=== PATIENT | female | born 1990 | race Caucasian/White ===

== ENCOUNTER 2017-02-19 17:05 | Emergency (ER) | payer OTHER ==
[2017-02-19 17:14] VITALS: BP 110/70; PULSE 73; TEMP 97.9; BMI 32.4
--- NOTE | 2017-02-19 17:17 | PDOC ---
History of Present Illness - General History Source: Patient Exam Limitations: No Limitations - History of Present Illness Initial Comments: 02/19/17 18:05 The patient is a 26 year old female, with a significant past medical history of asthma, who presents to the emergency department with diffuse abdominal pain for the past 2 hours. The patient reports that she does not usually eat fast food but she reports that she did this afternoon. Shortly after, she reports that she began experiencing diffuse abdominal pain. The patient additionally endorses nausea with multiple episodes of vomiting and diarrhea since then. She rates the pain as a 7/10 in severity. The patient denies fevers or dysuria. The patients sister is at the bedside. LMP: 02/08/2017. Allergies: Shellfish derived. Past Surgical History: None reported. Social History: Non smoker. Denies alcohol or drug use. PCP: Dr. Orlando Hayward <Colette Diaz - Last Filed: 02/19/17 18:05> <Deondre Echols - Last Filed: 02/19/17 19:16> - General Chief Complaint: Pain, Acute Stated Complaint: ABD PAIN/VOMITING Time Seen by Provider: 02/19/17 17:13 Past History <Colette Diaz - Last Filed: 02/19/17 18:05> - Past Medical History Asthma: Yes - Psycho/Social/Smoking Cessation Hx Suicidal Ideation: No Smoking History: Never smoked Have you smoked in the past 12 months: No Hx Alcohol Use: No Drug/Substance Use Hx: No <Deondre Echols - Last Filed: 02/19/17 19:16> - Past Medical History Allergies/Adverse Reactions: Allergies Allergy/AdvReac Type Severity Reaction Status Date / Time shellfish derived Allergy Verified 02/19/17 17:10 Home Medications: Ambulatory Orders Cetirizine HCl [Zyrtec -] 20 mg PO DAILY 02/19/17 Lactobacillus Acidophilus [Acidophilus Lactobacillus] 1 each PO DAILY PRN Review of Systems - Review of Systems Able to Perform ROS?: Yes Comments:: 02/19/17 17:29 CONSTITUTIONAL: No fever, no chills, no fatigue EYES: No visual changes ENT: No ear pain, no sore throat CARDIOVASCULAR: No chest pain, no palpitations RESPIRATORY: No cough, no SOB GI: +Nausea, vomiting, diarrhea, abdominal pain. No constipation. GENITOURINARY: No dysuria, no frequency, no hematuria MUSKULOSKELETAL: No back pain, no joint pain, no myalgias SKIN: No rash NEURO: No headache <Colette Diaz - Last Filed: 02/19/17 18:05> *Physical Exam - Vital Signs Last Vital Signs Temp Pulse Resp BP Pulse Ox 97.9 F 73 18 110/70 97 02/19/17 17:06 02/19/17 17:06 02/19/17 17:06 02/19/17 17:06 02/19/17 17:06 - Physical Exam Comments: 02/19/17 18:00 CONSTITUTIONAL: Obese. Well-nourished; writhing in pain. HEAD: Normocephalic; atraumatic. EYES: No scleral icterus. Conjunctiva are pink. PERRL; EOM intact. ENMT: Dry mucosa. External appears normal; normal oropharynx. NECK: Supple; non-tender; no cervical lymphadenopathy. CARD: Normal S1, S2; no murmurs, rubs, or gallops. RESP: Normal chest excursion with respiration; breath sounds clear and equal bilaterally; no wheezes, rhonchi, or rales. ABD: Epigastric, RUQ and periumbilical tenderness to palpation. Negative France' s sign. Negative McBurney's point. No guarding, no rebound. Soft, non-distended ; no palpable organomegaly, no palpable hernias. EXT: Normal ROM in all four extremities; non-tender to palpation; distal pulses intact. SKIN: Warm, dry, no rash. NEURO: No focal neurological deficiencies. Normal speech, normal gait. <Colette Diaz - Last Filed: 02/19/17 18:05> - Vital Signs Last Vital Signs Temp Pulse Resp BP Pulse Ox 97.9 F 73 18 110/70 97 02/19/17 17:06 02/19/17 17:06 02/19/17 17:06 02/19/17 17:06 02/19/17 17:06 <Deondre Echols - Last Filed: 02/19/17 19:16> ED Treatment Course - LABORATORY CBC & Chemistry Diagram: 02/19/17 18:00 02/19/17 17:30 <Deondre Echols - Last Filed: 02/19/17 19:16> Medical Decision Making - Medical Decision Making 02/19/17 18:18 Patient reexamined. Patient is resting comfortably, pain free; abdominal exam reveals no focal tenderness, there is no guarding or rebound. Will continue to hydrate. Awaiting CBC/CMP/lipase/UA. 02/19/17 19:14 Patient reassessed. Patient is pain and symptom-free. Abdominal exam is showing no focal tenderness. Patient tolerates by mouth. CBC reveals no evidence of anemia or leukocytosis. CMP reveals normal electrolytes, normal LFTs and normal renal function. Lipase is within normal limit as well. Urinalysis reveals no evidence of pyuria. At this time, I do not suspect acute cholecystitis or colitis or appendicitis. Patient will be discharged with GI follow-up. <Deondre Echols - Last Filed: 02/19/17 19:16> *DC/Admit/Observation/Transfer - Attestations Scribe Attestion: 02/19/17 17:21 Documentation prepared by Colette Diaz, acting as medical imaging technologist for Deondre Echols MD. <Colette Diaz - Last Filed: 02/19/17 18:05> <Deondre Echols - Last Filed: 02/19/17 19:16> Diagnosis at time of Disposition: Abdominal pain Qualifiers: Abdominal location: upper abdomen, unspecified Qualified Code(s): R10.10 - Upper abdominal pain, unspecified Nausea and vomiting Qualifiers: Vomiting type: unspecified Vomiting Intractability: non-intractable Qualified Code(s): R11.2 - Nausea with vomiting, unspecified - Discharge Dispostion Disposition: HOME Condition at time of disposition: Stable - Referrals Referrals: Owen Munoz MD [Primary Care Provider] - Kannan Castro MD [Staff Physician] - - Patient Instructions Printed Discharge Instructions: DI for Abdominal Pain-Adult
[2017-02-19] MEDS ORDERED: morphine CARPU-JECT 4 MG/1 ML DISP.SYRIN IVPUSH ONE (17:24)
[2017-02-19] MEDS ORDERED: ONDANSETRON 4 MG/2 ML VIAL IVPB ONE (17:24)
[2017-02-19] MEDS ORDERED: FAMOTIDINE 20 MG/50 ML IVPB 50 ML IVPB ONE ×2 (17:24→17:26)
[2017-02-19] MEDS ORDERED: morphine CARPU-JECT 4 MG/1 ML DISP.SYRIN ONE (17:25)
[2017-02-19] MEDS ORDERED: ONDANSETRON 4 MG/2 ML VIAL ONE (17:26)
[2017-02-19 18:24] LABS: BASOPHIL 0.2 % (0-2.0); EOSINOPHIL 1.6 % (0-4.5); MEAN PLT VOLUME 7.4 fl (7.5-11.1); NEUTROPHILS 69.6 % (42.8-82.8); PLATELET COUNT 295 K/MM3 (134-434); RDW 13.9 % (11.6-15.6); WHITE BLOOD COUNT 9.6 K/mm3 (4.0-10.0)
[2017-02-19 18:57] LABS: ALBUMIN 4.1 g/dl (3.4-5.0); ALK PHOS 69 U/L (45-117); ANION GAP 9 (8-16); BILIRUBIN,TOTAL 0.5 mg/dL (0.2-1.0); CALCIUM 8.7 mg/dL (8.5-10.1); CO2 24 mmol/L (21-32); CREATININE 0.9 mg/dL (0.55-1.02); GLUCOSE,RANDOM 88 mg/dL (74-106); SGOT/AST 20 U/L (15-37); SGPT/ALT 24 U/L (12-78)
[2017-02-19 19:07] LABS: URINE APPEARANCE CLEAR; URINE BILIRUBIN NEGATIVE (NEGATIVE); URINE COLOR YELLOW; URINE GLUCOSE (UA) NEGATIVE (NEGATIVE); URINE KETONE NEGATIVE (NEGATIVE); URINE LEUK ESTERASE NEGATIVE (NEGATIVE); URINE NITRITE NEGATIVE (NEGATIVE); URINE PROTEIN NEGATIVE (NEGATIVE); URINE UROBILINOGEN NEGATIVE E.U./dl (0.2-1.0)
[2017-02-19 19:09] LABS: URINE BLOOD 1+ (NEGATIVE)
[2017-02-19 19:12] LABS: URINE MUCUS RARE; URINE RBC 3 /hpf (0-3); URINE WBC 1 /hpf (3-5)
== END 2017-02-19 19:17 | disposition home or self-care (01) ==
LOC: JER 17:05
PROC: 3E033GC Introduction of Other Therapeutic Substance into Peripheral Vein, Percutaneous Approach (ICD-10-PCS; principal; 2017-02-19)
PROC: 3E033NZ Introduction of Analgesics, Hypnotics, Sedatives into Peripheral Vein, Percutaneous Approach (ICD-10-PCS; 2017-02-19)
PROC: 3E033GC Introduction of Other Therapeutic Substance into Peripheral Vein, Percutaneous Approach (ICD-10-PCS; 2017-02-19)
DX: R10.84 Generalized abdominal pain (principal); J45.909 Unspecified asthma, uncomplicated
CPT/HCPCS: 36415; 80053; 81003; 81015; 83690; 84703; 85025; 87086; 96365; 96375; 99283-25

== ENCOUNTER 2017-07-15 19:39 | Inpatient (IN) | payer OTHER ==
[2017-07-15 19:51] VITALS: BMI 33.6
[2017-07-15] MEDS ORDERED: ALBUTEROL SO4 0.083% IH SOL 2.5 MG/3 ML VIAL.NEB. NEB PRN (20:00)
[2017-07-15] MEDS ORDERED: methylPREDNISolone NA SUCC 125 MG/2 ML VIAL IVPB ONE (20:00)
[2017-07-15] MEDS ORDERED: methylPREDNISolone NA SUCC 125 MG/2 ML VIAL ONE (20:01)
[2017-07-15] MEDS ORDERED: ALBUTEROL SO4 2.5/IPRATROPIUM 0.5 INH SOL 3 ML VIAL.NEB. NEB ONE (20:01)
[2017-07-15 20:16] LABS: BASOPHIL 0.2 % (0-2.0); EOSINOPHIL 1.6 % (0-4.5); MCH 31.3 pg (25.7-33.7); MCHC 32.8 g/dl (32.0-36.0); MEAN CELL VOLUME 95.4 fl (80-96); MEAN PLT VOLUME 6.8 fl (7.5-11.1); NEUTROPHILS 81.9 % (42.8-82.8); PLATELET COUNT 316 K/MM3 (134-434); RDW 13.5 % (11.6-15.6); WHITE BLOOD COUNT 13.1 K/mm3 (4.0-10.0)
[2017-07-15] MEDS: ALBUTEROL SO4 2.5/IPRATROPIUM 0.5 INH SOL 3 ML VIAL.NEB. NEB SCH ×2 (20:16→20:33)
[2017-07-15] MEDS ORDERED: SODIUM CHLORIDE 500 ML IV STA (20:17)
--- NOTE | 2017-07-15 20:24 | PDOC ---
Attending Attestation - Resident Resident Name: Yuriy Nieves - ED Attending Attestation I have performed the following: I have examined & evaluated the patient, The case was reviewed & discussed with the resident, I agree w/resident's findings & plan, Exceptions are as noted - HPI HPI: 07/15/17 20:21 26-year-old female with history of mild to moderate persistent asthma, never intubated but takes albuterol daily, currently at about 19 weeks gestation presents with worsening asthma symptoms particularly over the last 2-3 days in the setting of URI symptoms of nasal congestion and cough. Chills but no fever, was using albuterol and nebulizer at home only transient relief, seen at urgent care initially then referred to the emergency department. No chest pain or lung pain, does not smoke. - Physicial Exam PE: 07/15/17 20:22 Tachypneic and tachycardic in stretcher, O2 sat 100% No stridor Symmetric air entry without accessory muscle use while on nebulizer, bibasilar inspiratory and expiratory wheezing, no focally decreased breath sounds. - Critical Care Time Total Critical Care Time: 50 Critical Care Statement: The care of this patient involved high complexity decision making to prevent further life threatening deterioration of the patient 's condition and/or to evaluate & treat vital organ system(s) failure or risk of failure. - Medical Decision Making 07/15/17 20:23 Patient seen and evaluated with the resident. I agree with the overall evaluation, assessment, and management with the following summary of visit: 26-year-old female second trimester gestation with worsening asthma symptoms also in the setting of URI. Improving on nebulizers in the ER, lower suspicion for pneumonia. Rule out influenza. Nebulizers, IV steroids IV fluid hydration Influenza swab No indication for imaging in this woman at this time Reassess Heart Score/ECG Review #1 ECG reviewed & interpreted by me at: 00:13 General ECG Interpretation: Sinus Rhythm (tachy at 108), Normal Intervals (qtc 455), No acute ischemic changes
--- NOTE | 2017-07-15 20:27 | PDOC ---
History of Present Illness - General Chief Complaint: Asthma Stated Complaint: ASTHMA Time Seen by Provider: 07/15/17 19:53 History Source: Patient Exam Limitations: No Limitations - History of Present Illness Initial Comments: 07/15/17 20:21 Patient is a 26F with history of asthma (never hospitalized or intubated ) here today complaining of shortness of breath. She went to urgent care where she had several treatments of albuterol that worked briefly, but symptoms resumed. She had cold symptoms starting two days ago, including cough and running nose. She denies fevers, nausea, vomiting. Past History - Past Medical History Allergies/Adverse Reactions: Allergies Allergy/AdvReac Type Severity Reaction Status Date / Time shellfish derived Allergy Verified 07/15/17 19:51 Home Medications: Ambulatory Orders Cetirizine HCl [Zyrtec -] 20 mg PO DAILY 02/19/17 Asthma: Yes - Psycho/Social/Smoking Cessation Hx Anxiety: No Suicidal Ideation: No Smoking History: Never smoked Have you smoked in the past 12 months: No Information on smoking cessation initiated: No Hx Alcohol Use: No Drug/Substance Use Hx: No Substance Use Type: None Review of Systems - Review of Systems Comments:: 07/15/17 20:25 GENERAL/CONSTITUTIONAL: No fever or chills. No weakness. HEAD, EYES, EARS, NOSE AND THROAT: No change in vision. No ear pain or discharge. No sore throat. CARDIOVASCULAR: No chest pain. Positive for shortness of breath RESPIRATORY: Positive for cough and wheezing GASTROINTESTINAL: No nausea, vomiting, diarrhea or constipation. GENITOURINARY: No dysuria, frequency, or change in urination. SKIN: No rash NEUROLOGIC: No headache, loss of consciousness, or change in strength/sensation. HEMATOLOGIC/LYMPHATIC: No anemia, easy bleeding, or history of blood clots. ALLERGIC/IMMUNOLOGIC: No hives or skin allergy. *Physical Exam - Vital Signs Last Vital Signs Temp Pulse Resp BP Pulse Ox 98.5 F 111 H 25 H 113/67 96 07/15/17 19:48 07/15/17 19:48 07/15/17 19:48 07/15/17 19:48 07/15/17 19:48 - Physical Exam Comments: 07/15/17 20:26 GENERAL: Awake, alert, and fully oriented, in respiratory distress HEAD: No signs of trauma, normocephalic, atraumatic EYES: PERRLA, EOMI, sclera anicteric, conjunctiva clear ENT: Auricles normal inspection, hearing grossly normal, nares patent, oropharynx clear without exudates. Moist mucosa LUNGS: 2-4 word sentences only, decreased breath sounds bilaterally HEART: Tachycardic normal S1 and S2, no murmurs, rubs or gallops, peripheral pulses normal and equal bilaterally. ABDOMEN: Soft, nontender, normoactive bowel sounds. No guarding, no rebound. No masses EXTREMITIES: Normal inspection, Normal range of motion, no edema. No clubbing or cyanosis. NEUROLOGICAL: Cranial nerves II through XII grossly intact. No focal sensorimotor deficits SKIN: Warm, Dry, normal turgor, no rashes or lesions noted. ED Treatment Course - LABORATORY CBC & Chemistry Diagram: 07/15/17 20:11 07/15/17 20:11 - ADDITIONAL ORDERS Additional order review: 07/15/17 20:11 RBC 3.92 MCV 95.4 MCHC 32.8 RDW 13.5 MPV 6.8 L Neutrophils % 81.9 Lymphocytes % 8.8 D Monocytes % 7.5 Eosinophils % 1.6 Basophils % 0.2 - Medications Given in the ED: ED Medications Discontinued Medications Generic Name Dose Route Start Last Admin Trade Name Kraig PRN Reason Stop Dose Admin Methylprednisolone Sodium Succinate 125 mg 07/15/17 20:00 07/15/17 20:13 Solu-Medrol - IVPB 07/15/17 20:01 125 mg ONCE ONE Administration Medical Decision Making - Medical Decision Making 07/15/17 20:27 26F with history of asthma (no hospitalizations or intubations), currently here today with asthma exacerbation. Tachypneic, tachycardic, vital signs otherwise stable. Lung sounds initially decreased, improved significantly with first duoneb. Also given steroids. Will evaluate with cbc, cmp. Will hold chest x-ray due to status and lack of additional diagnostic material. Plan to give mag if needed beyond initial treatment. Will continue to reevaluate. 07/15/17 21:44 Laboratory Tests 07/15/17 20:11 WBC 13.1 H D Hgb 12.3 D Hct 37.4 D Plt Count 316 CBC shows white count, cmp wnl. 07/15/17 22:51 Patient respiratory status worsened. Given another duoneb and dose of magnesium. Will admit for observation. 07/15/17 23:[address] Abel, admitted to [facility] obs under Dr Harrell. *DC/Admit/Observation/Transfer Diagnosis at time of Disposition: Asthma exacerbation - Discharge Dispostion Admit: Yes
[2017-07-15 20:47] LABS: ALK PHOS 63 U/L (45-117); ANION GAP 5 (8-16); BILIRUBIN,TOTAL 0.3 mg/dL (0.2-1.0); CALCIUM 8.7 mg/dL (8.5-10.1); CO2 25 mmol/L (21-32); CREATININE 0.6 mg/dL (0.55-1.02); GLUCOSE,RANDOM 76 mg/dL (74-106); SGOT/AST 23 U/L (15-37); SGPT/ALT 42 U/L (12-78); TOT PROT 6.9 g/dl (6.4-8.2)
[2017-07-15] MEDS ORDERED: ACETAMINOPHEN 325 MG TABLET (FP) PO ONE (20:53)
[2017-07-15] MEDS ORDERED: ACETAMINOPHEN 325 MG TABLET (FP) ONE (21:00)
[2017-07-15] MEDS ORDERED: ALBUTEROL SO4 0.083% IH SOL 2.5 MG/3 ML VIAL.NEB. NEB ONE ×2 (22:11→22:13)
[2017-07-15] MEDS ORDERED: MAGNESIUM SULF 50% (8.12 MEQ/2 ML-1 GM VIAL) IVPB ONE (22:11)
[2017-07-15] MEDS ORDERED: MAGNESIUM SULF 50% (8.12 MEQ/2 ML-1 GM VIAL) ONE (22:13)
--- NOTE | 2017-07-16 00:41 | HP ---
CHIEF COMPLAINT: SOB PCP: Dr. Munoz ([facility] physician) HISTORY OF PRESENT ILLNESS: Pt is a 26yo @ 19weeks with PMHx of Mild/mod persistent asthma who presented to the ER with SOB and wheezing. 2-3 days ago, patient started experiencing viral URI symptoms (sneezing, runny nose, watery eyes, congestion) and subsequently noticed increased SOB and wheezing. Was seen by urgent care, given duoneb treatments with only temporary improvement. She endorses chest tightness, sinus headache, dry cough. No sputum production, no fevers, no sick contacts, no recent travel. She states that she normally uses her Albuterol inhaler 2-3x in the day, and another 2-3x in the night. She endorses nighttime awakenings 3-4x/week. She has never seen a automation specialist. Pt takes NIGHTLY Zyrtec for allergies, endorses moderate allergy symptoms if she misses one dose. 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 ER course was notable for: (1) EKG - Sinus Tach, No S1Q3T3 seen (1) Duoneb + IV Solumedrol 125mg once --> Duoneb + Mag 1g once (2) Flu swab - negative (3) Tylenol 650mg x1 for headache Update: After transfer to floors, the patient's breathing and chest tightness still hasn't improved. O2 sat dropped to 88 on RA, Given O2 3L NC with improvement to 96. SOB is unchanged. Will call respiratory to schedule another duoneb treatment now. Will give patient Claritin tonight (Zyrtec is NF). Appx 30 minutes post duoneb, O2 sat 100, HR increased from 110s to 120s, patient 's breathing and chest tightness has improved. Patient requesting 1 dose Mucinex , now stating she is coughing clear sputum. Called pharmacy to confirm safety in . Cleared. Appx 1.5 hour post duoneb, chest tightness returned, difficulty breathing has returned, pt unable to sleep. O2 sat 94-96 on 3L, HR 113, RR 18. Will proceed with one Pulmicort 0.5 treatment and CXR. Informed patient about risks/ benefits. Pt gave verbal and written consent. Informed X-RAY tech about status, will use flowers as much as possible. Will continue to check throughout the night. 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 1 prior spontaneous first trimester miscarriage Social History: Smoking: Denies Alcohol: Denies Drugs: Denies Family History: Family hx of Asthma Allergies shellfish derived Allergy (Verified 07/15/17 19:51) HOME MEDICATIONS: Home Medications Medication Instructions Recorded Cetirizine HCl [Zyrtec -] 20 mg PO DAILY 02/19/17 REVIEW OF SYSTEMS CONSTITUTIONAL: Absent: fever, chills, diaphoresis, generalized weakness, malaise, loss of appetite, weight change HEENT: Absent: throat pain, throat swelling, difficulty swallowing, mouth swelling, ear pain, eye pain, visual changes Present: nasal congestion, sneezing, rhinorrhea CARDIOVASCULAR: Absent: chest pain, syncope, palpitations, irregular heart rate, lightheadedness , peripheral edema RESPIRATORY: Absent: dyspnea with exertion, orthopnea, stridor, hemoptysis Present: cough, shortness of breath, chest tightness, wheezing GASTROINTESTINAL: Absent: abdominal pain, abdominal distension, nausea, vomiting, diarrhea, constipation, melena, hematochezia GENITOURINARY: Absent: dysuria, frequency, urgency, hesitancy, hematuria, flank pain, genital pain MUSCULOSKELETAL: Absent: myalgia, arthralgia, joint swelling, back pain, neck pain SKIN: Absent: rash, itching, pallor HEMATOLOGIC/IMMUNOLOGIC: Absent: easy bleeding, easy bruising, lymphadenopathy, frequent infections ENDOCRINE: Absent: unexplained weight gain, unexplained weight loss, heat intolerance, cold intolerance NEUROLOGIC: Absent: headache, focal weakness or paresthesias, dizziness, unsteady gait, seizure, mental status changes, bladder or bowel incontinence PSYCHIATRIC: Absent: anxiety, depression, suicidal or homicidal ideation, hallucinations. PHYSICAL EXAMINATION Vital Signs Period Temp Pulse Resp BP Sys/Baltazar Pulse Ox Last 24 Hr 98.1 F-98.5 F 107-118 17-25 113-125/67-80 89-100 PEAK FLOW - 150 GEN: AAOx3, audible wheezing, sounds congested, blowing nose with tissues frequently, but not acutely SOB, no use of accessory muscles, HEENT: PERRLA, EOMi, no TTP in sinuses, no cervical LAD CV: S1, S2, RRR LUNG: Mod air intake, Expiratory wheezes, mild inspiratory wheezes ABD: Soft, NT, ND, Gravid MSK: No edema, no erythema NEURO: CN 2-12 intact, MSK 5/5, no sensation deficits, reflexes 2+ Laboratory Last Values WBC 13.1 K/mm3 (4.0-10.0) H D 07/15/17 20:11 RBC 3.92 M/mm3 (3.60-5.2) 07/15/17 20:11 Hgb 12.3 GM/dL (10.7-15.3) D 07/15/17 20:11 Hct 37.4 % (32.4-45.2) D 07/15/17 20:11 MCV 95.4 fl (80-96) 07/15/17 20:11 MCH 31.3 pg (25.7-33.7) 07/15/17 20:11 MCHC 32.8 g/dl (32.0-36.0) 07/15/17 20:11 RDW 13.5 % (11.6-15.6) 07/15/17 20:11 Plt Count 316 K/MM3 (134-434) 07/15/17 20:11 MPV 6.8 fl (7.5-11.1) L 07/15/17 20:11 Neutrophils % 81.9 % (42.8-82.8) 07/15/17 20:11 Lymphocytes % 8.8 % (8-40) D 07/15/17 20:11 Monocytes % 7.5 % (3.8-10.2) 07/15/17 20:11 Eosinophils % 1.6 % (0-4.5) 07/15/17 20:11 Basophils % 0.2 % (0-2.0) 07/15/17 20:11 Sodium 136 mmol/L (136-145) 07/15/17 20:11 Potassium 4.4 mmol/L (3.5-5.1) 07/15/17 20:11 Chloride 106 mmol/L (98-107) 07/15/17 20:11 Carbon Dioxide 25 mmol/L (21-32) 07/15/17 20:11 Anion Gap 5 (8-16) L 07/15/17 20:11 BUN 7 mg/dL (7-18) 07/15/17 20:11 Creatinine 0.6 mg/dL (0.55-1.02) D 07/15/17 20:11 Creat Clearance w eGFR > 60 (>60) 07/15/17 20:11 Random Glucose 76 mg/dL (74-106) 07/15/17 20:11 Calcium 8.7 mg/dL (8.5-10.1) 07/15/17 20:11 Total Bilirubin 0.3 mg/dL (0.2-1.0) D 07/15/17 20:11 AST 23 U/L (15-37) 07/15/17 20:11 ALT 42 U/L (12-78) D 07/15/17 20:11 Alkaline Phosphatase 63 U/L (45-117) 07/15/17 20:11 Total Protein 6.9 g/dl (6.4-8.2) 07/15/17 20:11 Albumin 3.0 g/dl (3.4-5.0) L D 07/15/17 20:11 Home Medication List Medication Instructions Recorded Confirmed Type Cetirizine HCl [Zyrtec -] 20 mg PO DAILY 02/19/17 07/15/17 History Active Medications Generic Name Dose Route Start Last Admin Trade Name Freq PRN Reason Stop Dose Admin Albuterol/Ipratropium 1 amp 07/16/17 02:00 07/16/17 00:59 Duoneb - NEB 1 amp Q4HPO HÉCTOR Administration Budesonide 1 amp 07/16/17 10:00 Pulmicort 0.5 Mg Nebulizer - NEB BID HÉCTOR Loratadine 10 mg 07/16/17 22:00 Claritin - PO HS [facility] ASSESSMENT/PLAN: 26yo F at 19 weeks w/ PMHx of asthma, allergies presents with asthma exacerbation with PEF 150. # Asthma Exacerbation - likely 2/2 viral URI - Continue Duonebs + Pulmicort standing - CXR shows no consolidation (read by me), awaiting official read - Hold off on systemic steroids for now due to , will reassess in AM - PEF 150, Daily peak flow - O2 as needed - Pulmonary + OBGYN Consult # Allergies - Pt takes Zyrtec nightly, states she has severe allergy symptoms without it - Zyrtec is NF, told pt to bring from home - Claritin 10mg once # - Check Category status of all drugs - OBGYN consult # FEN - Fluids: Not needed - Electrolyte: WNL - Nutrition: Regular Diet # Prophylaxis - DVT: SCDs - GI: Not indicated - Deconditioning: PT not needed, pt is ambulatory # Dispo - Admit to obs - Monitor closely throughout the night Case discussed w/ Dr. Harrell and Dr. Page Thurman MD, PGY1 - Internal Medicine Visit type - Emergency Visit Emergency Visit: Yes ED Registration Date: 07/15/17 Care time: The patient presented to the Emergency Department on the above date and was hospitalized for further evaluation of their emergent condition. - New Patient This patient is new to me today: Yes Date on this admission: 07/16/17 - Critical Care Critical Care patient: Yes Total Critical Care Time (in minutes): 50 Critical Care Statement: The care of this patient involved high complexity decision making to prevent further life threatening deterioration of the patient 's condition and/or to evaluate & treat vital organ system(s) failure or risk of failure.
[2017-07-16] MEDS: ALBUTEROL SO4 2.5/IPRATROPIUM 0.5 INH SOL 3 ML VIAL.NEB. NEB SCH ×3 (00:59→11:45)
[2017-07-16] MEDS ORDERED: LORATADINE 10 MG TABLET PO ONE (00:59)
--- NOTE | 2017-07-16 01:15 | PN ---
Teaching Attending Note Name of Resident: Kristin Thurman ATTENDING PHYSICIAN STATEMENT I saw and evaluated the patient. I reviewed the resident's note and discussed the case with the resident. I agree with the resident's findings and plan as documented. SUBJECTIVE: 26yo @ 19weeks with presented to the ER with 3 day history of dry cough and wheezing,sneezing, runny nose, watery eyes and congestion. In ED received nebulizers and IV solumedrol PMHx of Mild/mod persistent asthma OBJECTIVE: Vital Signs Temperature 98.5 F 07/15/17 19:48 Pulse Rate 113 H 07/16/17 00:05 Respiratory Rate 17 07/16/17 00:05 Blood Pressure 125/77 07/16/17 00:05 O2 Sat by Pulse Oximetry (%) 96 07/16/17 00:05 EARS, NOSE, THROAT: Ears normal, nares patent, oropharynx clear without exudates. Moist mucous membranes. NECK: Normal range of motion, supple without lymphadenopathy, JVD, or masses. LUNGS b/l wheezes HEART: Regular rate and rhythm, normal S1 and S2 without murmur, rub or gallop. ABDOMEN: Soft, nontender, not distended, normoactive bowel sounds, no guarding, no rebound, no masses. No hepatomegaly or splenomegaly. MUSCULOSKELETAL: Normal range of motion at all joints. No bony deformities or tenderness. No CVA tenderness. UPPER EXTREMITIES: 2+ pulses, warm, well-perfused. No cyanosis. No clubbing. No peripheral edema. LOWER EXTREMITIES: 2+ pulses, warm, well-perfused. No calf tenderness. No peripheral edema. NEUROLOGICAL: Cranial nerves II-XII intact. Normal speech. Normal gait. PSYCHIATRIC: Cooperative. Good eye contact. Appropriate mood and affect. CBC, BMP 07/15/17 20:11 07/15/17 20:11 ASSESSMENT AND PLAN: 1. Asthma Exacerbation - likely 2/2 viral URI, hypoxic to 88 without oxygen and peak flow is severely reduced ( 150 ) - Continue Duonebs Q4 standing dose - inhaled steroids - s/p IV solumedrol - CXR if no improvement - Daily peak flow - O2 at 3L - Pulmonary + OBGYN Consult 2. Seasonal Allergies - Pt takes Zyrtec nightly - Will continue Zyrtec PM for now 3. state - stable - test fixture designer eval
[2017-07-16] MEDS ORDERED: guaiFENesin 600 MG TABLET.ER (FP) PO ONE (02:15)
[2017-07-16] MEDS ORDERED: BUDESONIDE 0.25 MG/2ML INH SUSP VIAL NEB ONE (02:46)
[2017-07-16] MEDS ORDERED: BUDESONIDE 0.5 MG/2 ML INH SUSP VIAL NEB ONE (02:48)
[2017-07-16 08:05] LABS: MCH 31.5 pg (25.7-33.7); MCHC 33.1 g/dl (32.0-36.0); MEAN CELL VOLUME 95.3 fl (80-96); PLATELET COUNT 331 K/MM3 (134-434); RDW 13.6 % (11.6-15.6); WHITE BLOOD COUNT 17.7 K/mm3 (4.0-10.0)
[2017-07-16 08:42] LABS: ANION GAP 11 (8-16); CALCIUM 8.8 mg/dL (8.5-10.1); CO2 19 mmol/L (21-32); GLUCOSE,RANDOM 113 mg/dL (74-106)
[2017-07-16 08:43] LABS: CREATININE 0.7 mg/dL (0.55-1.02)
--- NOTE | 2017-07-16 09:39 | EKG ---
Test Reason : Blood Pressure : / mmHG Vent. Rate : 108 BPM Atrial Rate : 108 BPM P-R Int : 126 ms QRS Dur : 066 ms QT Int : 340 ms P-R-T Axes : 067 034 046 degrees QTc Int : 455 ms POOR DATA QUALITY, INTERPRETATION MAY BE ADVERSELY AFFECTED SINUS TACHYCARDIA WITH OCCASIONAL PREMATURE VENTRICULAR COMPLEXES NONSPECIFIC T WAVE ABNORMALITY NO PREVIOUS ECGS AVAILABLE Confirmed by JUAN RAMON HURLEY MD ([id number]) on 07/16/2017 9:38:40 AM Referred By: Confirmed By:JUAN RAMON HURLEY MD
[2017-07-16] MEDS ORDERED: LORATADINE 10 MG TABLET PO SCH ×2 (10:00→22:00)
[2017-07-16] MEDS: BUDESONIDE 0.5 MG/2 ML INH SUSP VIAL NEB SCH ×2 (10:10→21:45)
[2017-07-16] MEDS ORDERED: ALBUTEROL SO4 2.5/IPRATROPIUM 0.5 INH SOL 3 ML VIAL.NEB. NEB PRN (11:42)
--- NOTE | 2017-07-16 12:14 | PN ---
Teaching Attending Note Name of Resident: Rock Bboo ATTENDING PHYSICIAN STATEMENT I saw and evaluated the patient. I reviewed the resident's note and discussed the case with the resident. I agree with the resident's findings and plan as documented. SUBJECTIVE:dypnea improved since yesterday. continues to have cough but improved since yesterday. states she was using rescue inhaler 5x/day and in the middle of the night, assoc with green sputum production. was diagnosed with asthma in her teens by her PMD and was not formally diagnosed with PFT. has never been hospitalized or intubated. no sick contacts or recent travel, denies CP, fever, chills, N/V/C/D OBJECTIVE: Last Vital Signs Temp Pulse Resp BP Pulse Ox 98.2 F 102 H 22 123/79 91 L 07/16/17 08:45 07/16/17 10:10 07/16/17 08:45 07/16/17 08:45 07/16/17 10:10 General NAD CV S1 S2 tachycardic lungs diffuse wheezing abdomen gravid uterus soft NT extremities non pitting edema ASSESSMENT AND PLAN: 26yo F wt PMH asthma presented with SOB and hypoxia 1. Acute hypoxic respiratory distress due to acute asthma exacerbation- currently saturating 97% on RA. continues to have wheezing. will cont solu- medrol 40mg Q6H, safe during after 1st trimester. pulmonary consulted. nebs prn. will need formal PFT testing outpatient. supplemental oxygen prn for SpO2 >90% 2. 19weeks Gestation- start vitamins. OB eval 3. DVT ppx- EAM 4. check all medications to ensure safe in
--- NOTE | 2017-07-16 12:27 | PN ---
Progress Note (short form) - Note Progress Note: PULMONARY CONSULTATION DICTATED 07/16/17 IMP MODERATE PERSISTENT ASTHMA WITH ACUTE EXACERBATION INTRAUTERINE PLAN IV STEROIDS INHALED BRONCHODILATORS INHALED STEROIDS NASAL O2 MONITOR PEAK FLOW PFTS OUTPATIENT DR COPPOLA Problem List - Problems (1) Asthma exacerbation Code(s): J45.901 - UNSPECIFIED ASTHMA WITH (ACUTE) EXACERBATION (2) Intrauterine Code(s): Z34.90 - ENCNTR FOR SUPRVSN OF NORMAL , UNSP, UNSP TRIMESTER
[2017-07-16] MEDS: methylPREDNISolone NA SUCC 40 MG/1 ML VIAL IVPB SCH ×4 (12:32→21:18)
--- NOTE | 2017-07-16 13:25 | PN ---
Physical Exam: SUBJECTIVE: Patient seen and examined at bedside. She reports improvement in her SOB, still with some wheezing , but over all reports feeling much more comfortable than on admission. Still with a productive cough without hemoptysis , but this symptoms was also improved after receiving inhaled brochodilators in the ER. She denies fever, chills, N/V/ chest pain. OBJECTIVE: Vital Signs Period Temp Pulse Resp BP Sys/Baltazar Pulse Ox Last 24 Hr 98.2 F 102-113 22 123/79 91-91 GENERAL: The patient is awake, alert, and fully oriented, in no acute distress. HEAD: Normal with no signs of trauma. EYES: sclera anicteric, conjunctiva clear. ENT: oropharynx clear without exudates, moist mucous membranes. NECK: Trachea midline, full range of motion, supple. LUNGS: Breath sounds equal,mild inspiratory and expiratory wheezes without use of accessory muscles,and able to speak wit full sentenses without an issues. HEART: tachycardic, normal S1, S2 without murmur, rubs or gallop. ABDOMEN: Soft, nontender, nondistended, normoactive bowel sounds, no guarding, gravid uterus. EXTREMITIES: 2+ pulses, warm, well-perfused, no edema. NEUROLOGICAL: Normal speech, gait not observed. PSYCH: Normal mood, normal affect. SKIN: Warm, dry, normal turgor, no rashes or lesions noted Active Medications Generic Name Dose Route Start Last Admin Trade Name Freq PRN Reason Stop Dose Admin Albuterol/Ipratropium 1 amp 07/16/17 11:52 Duoneb - NEB Q4H PRN ASTHMA Budesonide 1 amp 07/16/17 10:00 07/16/17 10:10 Pulmicort 0.5 Mg Nebulizer - NEB Not Given BID HÉCTOR Loratadine 10 mg 07/16/17 22:00 Claritin - PO HS HÉCTOR Methylprednisolone Sodium Succinate 40 mg 07/16/17 12:00 07/16/17 12:32 Solu-Medrol - IVPB 40 mg Q6H-IV HÉCTOR Administration Multivit/Folic Acid/Iron 1 tab 07/16/17 12:15 Vitamins (Sjr) - PO DAILY HÉCTOR ASSESSMENT/PLAN: 26yo F at 19 weeks gestation PMHx of mild to moderate asthma, allergies on home zyrtec, presenting with 3 days of respiratory symptoms concerning for acute asthma exacerbation (PEF 150) despite compliance with home medications. She does not have signs of systemic illness to suggest underlying bacterial infection or PNA as inciting factor, though viral URI is possible given prodromal sinus congestion. # Asthma Exacerbation - likely 2/2 viral URI; reports home medication compliance - CXR negative for acute processes - Continue Duonebs q4hr prn + Pulmicort bid - Initiate methylprednisolone 40mg IV q6hr per pulmonary recommedations (day 1 of IV steroids 07/16) - PEF 150, Daily peak flow - O2 as needed for goal O2 sat >90% - Appreciate Pulmonary Consult # Allergies - Pt takes Zyrtec nightly, states she has severe allergy symptoms without it -Prescribed claritin 10mg po qhs # - Current inpatient medications reviewed for safety during and no contraindications noted - vitamins daily -OBGYN consult requested # FEN - Fluids: Pt appears euvolemic and is eating and drinking normal, no IVFs needed - Electrolyte: WNL - Nutrition: Regular Diet # Prophylaxis - DVT: SCDs - GI: Not indicated - Deconditioning: Encouraged active ambulation # Dispo - Admit to obs and monitor for clinical improvement in asthma exacerbation Visit type - Emergency Visit Emergency Visit: Yes ED Registration Date: 07/16/17 Care time: The patient presented to the Emergency Department on the above date and was hospitalized for further evaluation of their emergent condition. - New Patient This patient is new to me today: Yes Date on this admission: 07/18/17 - Critical Care Critical Care patient: No - Discharge Referral Referred to [facility] No
[2017-07-16] MEDS: ALBUTEROL SO4 2.5/IPRATROPIUM 0.5 INH SOL 3 ML VIAL.NEB. NEB PRN ×2 (15:00→21:35)
[2017-07-16] MEDS ORDERED: PT OWN MED DRAWER 7, Y5N ONE ×2 (15:50→21:14)
[2017-07-16] MEDS: PRENATAL VITAMINS W/ FOLIC ACID TABLET (FP) PO SCH (15:59)
[2017-07-16] MEDS ORDERED: guaiFENesin 600 MG TABLET.ER (FP) PO PRN (16:54)
--- NOTE | 2017-07-16 23:35 | HOSP ---
Subjective - Review of Symptoms Events since last encounter: Was called by the nurse because the patient was experiencing 3/10 intermittent, tender, non-pleuritic, sharp, left sided chest pain and sharp, LUQ abdominal pain that started earlier today. She denied nausea, vomiting, headache, and lower extremity edema. -Ordered EKG -F/U Trop Physical Examination Vital Signs: Vital Signs Temperature 98.2 F 07/16/17 20:41 Pulse Rate 110 H 07/16/17 20:41 Respiratory Rate 20 07/16/17 20:41 Blood Pressure 134/70 07/16/17 20:41 O2 Sat by Pulse Oximetry (%) 97 07/16/17 20:34 Visit type - Emergency Visit Emergency Visit: Yes ED Registration Date: 07/16/17 Care time: The patient presented to the Emergency Department on the above date and was hospitalized for further evaluation of their emergent condition. - New Patient This patient is new to me today: No - Critical Care Critical Care patient: No
[2017-07-17] MEDS: ALBUTEROL SO4 2.5/IPRATROPIUM 0.5 INH SOL 3 ML VIAL.NEB. NEB PRN ×2 (02:15→08:50)
[2017-07-17] MEDS: methylPREDNISolone NA SUCC 40 MG/1 ML VIAL IVPB SCH ×2 (02:54→08:47)
--- NOTE | 2017-07-17 07:43 | PN ---
Teaching Attending Note Name of Resident: Marcial Dc ATTENDING PHYSICIAN STATEMENT I saw and evaluated the patient. I reviewed the resident's note and discussed the case with the resident. I agree with the resident's findings and plan as documented. SUBJECTIVE: OBJECTIVE: Last Vital Signs Temp Pulse Resp BP Pulse Ox 98.2 F 104 H 20 113/54 97 07/17/17 06:00 07/17/17 06:00 07/17/17 06:00 07/17/17 06:00 07/16/17 20:34 Lungs with mild end expiratory wheeze ASSESSMENT AND PLAN: The patient is a 26 year old female (19 weeks) with a significant past medical history of asthma who is HD#3 for acute exacerbation of asthma. #Asthma exacerbation Would favor changing to po Prednisone today Continue pulmicort Continue nebs prn Supplemental oxygen prn for SpO2 >90% Pulmonary consulted Will need formal PFT testing outpatient # Continue vitamins OB eval Cautious use of medications #Disposition Possible discharge later today See resident note for full details
[2017-07-17] MEDS ORDERED: PT OWN MED DRAWER 7, Y5N ONE ×2 (07:58→08:46)
--- NOTE | 2017-07-17 10:15 | PN ---
Physical Exam: SUBJECTIVE: Patient seen and examined at bedside. Chest pain overnight has resolved. Breathing is much better. Denies CP,QUIROGA, SOB, palpitations, abd. pain, N/V. OBJECTIVE: Vital Signs Period Temp Pulse Resp BP Sys/Baltazar Pulse Ox Last 24 Hr 97.7 F-98.7 F 102-110 20-20 113-134/54-78 91-97 GENERAL: AAOx3 HEAD:NC/AT ENT: moist mucous membranes. NECK: supple, No JVD LUNGS: mild expiratory wheezing HEART: RRR, no m/g/r ABDOMEN: Gravid uterus, soft, NT/ND, normal BS. EXTREMITIES: 2+ pulses, warm, well-perfused, no edema. NEUROLOGICAL: Normal speech, gait not observed. PSYCH: Normal mood, normal affect. SKIN: Warm, dry, normal turgor, no rashes or lesions noted Laboratory Results - last 24 hr 07/17/17 07/17/17 00:01 05:48 Troponin I < 0.02 < 0.02 Active Medications Generic Name Dose Route Start Last Admin Trade Name Freq PRN Reason Stop Dose Admin Albuterol/Ipratropium 1 amp 07/16/17 11:52 07/17/17 08:50 Duoneb - NEB 1 amp Q4H PRN Administration ASTHMA Budesonide 1 amp 07/16/17 10:00 07/16/17 21:45 Pulmicort 0.5 Mg Nebulizer - NEB 1 amp BID HÉCTOR Administration Guaifenesin 600 mg 07/16/17 16:54 Mucinex - PO BID PRN ASTHMA Loratadine 10 mg 07/16/17 22:00 07/16/17 21:18 Claritin - PO Not Given HS HÉCTOR Methylprednisolone Sodium Succinate 40 mg 07/16/17 12:00 07/17/17 08:47 Solu-Medrol - IVPB 40 mg Q6H-IV HÉCTOR Administration Multivit/Folic Acid/Iron 1 tab 07/16/17 12:15 07/16/17 15:59 Vitamins (Sjr) - PO 1 tab DAILY HÉCTOR Administration ASSESSMENT/PLAN: The patient is a 26 year old female (19 weeks) with a significant past medical history of asthma who is HD#3 for acute exacerbation of asthma. Problem List - Problems (1) Asthma exacerbation Assessment/Plan: * Currently on solumedrol 40mg IV Q6h; would consider switching to PO * Pulmonary consult appreciated. * Continue Pulmicort and Albuterol INH PRN * Supplemental O2 to maintain SpO2>90% * PFT's as outpatient. (2) Intrauterine Assessment/Plan: * Continue Vit. * OB eval upon discharge. Visit type - Emergency Visit Emergency Visit: Yes ED Registration Date: 07/16/17 Care time: The patient presented to the Emergency Department on the above date and was hospitalized for further evaluation of their emergent condition. - New Patient This patient is new to me today: Yes Date on this admission: 07/17/17 - Critical Care Critical Care patient: No
[2017-07-17] MEDS: PRENATAL VITAMINS W/ FOLIC ACID TABLET (FP) PO SCH (11:00)
[2017-07-17] MEDS: BUDESONIDE 0.5 MG/2 ML INH SUSP VIAL NEB SCH (12:12)
--- NOTE | 2017-07-17 12:54 | CON.PULM ---
Consult Consult Specialty:: PULM/CCM Referred by:: ERUM Reason for Consultation:: Asthma - History of Present Illness Chief Complaint: SOB History of Present Illness: 26 F, in her 19th week of . Apparently she had a miscarriage shortly after an AE of Asthma about 2 years ago. Onset of asthma around the age of 16/ 17. Prior to this, no history. No formal PFTs or baseline PEF measurements. For the past 2 years reports consistent need of 5 doses of Albuterol per day. No ICS use. Never steroid dependent. No intubation history. No travel history or sick contacts. No fever or chills. Symptoms seems largely allergic based. Took Singulair in the past with minimal benefit. Subjective improvement with antihistamines. Has taken Claritin in the past with good response. She does not smoke. There is no overt history consistent with sleep apnea. CXR : No acute pathology - History Source History Provided By: Patient Limitations to Obtaining History: No Limitations - Past Medical History Pulmonary: Yes: Asthma. No: Pneumonia, Previously Intubated, Pulmonary Embolus , Sleep Apnea ...LMP: 02/08/17 ...: Yes - Alcohol/Substance Use Hx Alcohol Use: No - Smoking History Smoking history: Never smoked Have you smoked in the past 12 months: No Home Medications - Allergies Allergies/Adverse Reactions: Allergies Allergy/AdvReac Type Severity Reaction Status Date / Time shellfish derived Allergy Verified 07/15/17 19:51 - Home Medications Home Medications: Ambulatory Orders Cetirizine HCl [Zyrtec -] 20 mg PO DAILY 02/19/17 Review of Systems - Review of Systems Constitutional: denies: Chills, Fever, Night Sweats, Unintentional Wgt. Loss Eyes: reports: No Symptoms HENT: reports: No Symptoms Neck: reports: No Symptoms Cardiovascular: reports: Shortness of Breath. denies: Chest Pain, Edema, Palpitations Respiratory: reports: Cough, SOB, SOB on Exertion, Wheezing. denies: Hemoptysis , Orthopnea, Snoring Gastrointestinal: reports: No Symptoms Genitourinary: reports: No Symptoms Breasts: reports: No Symptoms Reported Musculoskeletal: reports: No Symptoms Integumentary: reports: No Symptoms Neurological: reports: No Symptoms Endocrine: reports: No Symptoms Hematology/Lymphatic: reports: No Symptoms Psychiatric: reports: No Symptoms Physical Exam Vital Sings: Vital Signs Temperature 98.7 F 07/17/17 09:50 Pulse Rate 103 H 07/17/17 09:50 Respiratory Rate 20 07/17/17 09:50 Blood Pressure 115/59 07/17/17 09:50 O2 Sat by Pulse Oximetry (%) 96 07/17/17 09:50 Constitutional: Yes: Well Nourished, No Distress Eyes: Yes: Conjunctiva Clear, EOM Intact HENT: Yes: Atraumatic, Normocephalic Neck: Yes: Supple, Trachea Midline Cardiovascular: Yes: Regular Rate and Rhythm Respiratory: Yes: CTA Bilaterally, Cough, Rhonchi, Wheezes. No: Accessory Muscle Use, Rales, Stridor, Tachypnea ...Inspection: Yes: WNL ...Clubbing: No Gastrointestinal: Yes: Normal Bowel Sounds, Soft Renal/: Yes: WNL Musculoskeletal: Yes: WNL Extremities: Yes: WNL Edema: No Peripheral Pulses WNL: Yes Neurological: Yes: WNL, Alert, Oriented ...Motor Strength: WNL Psychiatric: Yes: WNL, Alert, Oriented Imaging - Results Chest X-ray: Report Reviewed, Image Reviewed Problem List - Problems (1) Asthma exacerbation Code(s): J45.901 - UNSPECIFIED ASTHMA WITH (ACUTE) EXACERBATION (2) Intrauterine Code(s): Z34.90 - ENCNTR FOR SUPRVSN OF NORMAL , UNSP, UNSP TRIMESTER (3) Environmental allergies Code(s): Z91.09 - OTH ALLERGY STATUS, OTH THAN TO DRUGS AND BIOLG SUBSTANCES Assessment/Plan OK for Prednisone taper and D/C home Albuterol (Class B) Can use Atrovent if needed (Class B) Pulmicort for ICS (class B) No ABX Can continue Claritin PEF monitoring counseled to the patient Serum IgE can be checked as an outpatient Baseline PFTs I provided the patient with my contact information for outpatient follow up Thank you. Dr Holcomb
[2017-07-17 14:26] VITALS: BP 118/53; PULSE 112; TEMP 98.4
[2017-07-17] MEDS ORDERED: predniSONE 20 MG TABLET (UD) PO ONE (17:21)
--- NOTE | 2017-07-17 19:23 | CONS ---
DATE OF CONSULTATION: 07/16/2017 REFERRING PHYSICIAN: Naty Thomas MD HISTORY: The patient is a 26-year-old female with past medical history of moderate, chronic, persistent asthma, history of multiple allergies who has never been intubated, maintained on inhaled bronchodilators admitted to [facility] with the complaint of 2- to 3-day history of increasing shortness of breath, cough, and bronchospasm. The patient is currently 19 weeks . She states approximately 2-3 days prior to admission she started developing URI symptoms. At that time, she had complaints of runny nose, sneezing, watery eyes, and chest congestion. She started taking her inhaled beta agonist, which did not offer significant improvement. Symptoms continued to worsen at which time she presented to the emergency room and was subsequently admitted. On arrival to the ER, she was found to be in moderate respiratory distress and was treated with steroids and bronchodilators with some clinical response. The patient denies any fevers, chills, nausea, vomiting, diaphoresis. There is no history of recent travel. There is no history of DVT in the past. She notes that her asthma is not under good control, and she is currently a frequent user of inhaled beta agonist. She has frequent nocturnal symptoms and gets this with minimal exertion. The patient denies any history of occupational exposure to chemicals or fumes. She has a history of smoking. Quit approximately 4 years ago. PAST MEDICAL HISTORY: Again, includes chronic, persistent asthma, intrauterine 19 weeks, multiple allergies. MEDICATIONS: Prior to admission include albuterol, Zyrtec. Current medications include Pulmicort, DuoNeb, and Claritin. REVIEW OF SYSTEMS: Positive for shortness of breath, positive cough, positive wheezing. No chest pain. Positive for chest tightness. No abdominal pain. PHYSICAL EXAMINATION: General: The patient is a well-developed, well-nourished female awake and alert in no acute distress. Vital Signs: She is currently afebrile. Blood pressure 123/79, respiratory rate 22, O2 saturation 91% on 2.5 L. HEENT: Normocephalic and atraumatic. Neck: Supple. Heart: Regular S1, S2. Chest: Bilateral expiratory and inspiratory wheezes. Abdomen: Soft. Bowel sounds are positive. Extremities: No cyanosis or edema. LABORATORIES: WBC 17.7, hemoglobin 11.8, hematocrit 35.7, platelet count 331,000. BUN 6, creatinine 0.7. Chest x-ray: No infiltrates, no effusions. IMPRESSION: 1. Moderate, persistent asthma with acute exacerbation likely secondary to upper respiratory infection. 2. Intrauterine . PLAN: IV steroids. Inhaled bronchodilators. Continue inhaled steroid. Monitor peak flow. Supplemental O2. Marquis [id number]
--- NOTE | 2017-07-18 12:03 | DS ---
Physical Exam: SUBJECTIVE: Patient seen and examined at bedside. She reports improvement in her breathing without acute events overnight. OBJECTIVE: Vital Signs Period Temp Pulse Resp BP Sys/Baltazar Pulse Ox Last 24 Hr 98.4 F 112 18 118/53 PHYSICAL EXAM GENERAL: The patient is awake, alert, and fully oriented, in no acute distress. HEAD: Normal with no signs of trauma. EYES: extraocular movements intact, sclera anicteric ENT: moist mucous membranes LUNGS: Breath sounds equal, mild end expiratory wheezes with no use of accessory muscles HEART: Regular rate and rhythm, S1, S2 without murmur, rub or gallop. ABDOMEN: Soft, nontender, nondistended, normoactive bowel sounds, no guarding, no rebound, no hepatosplenomegaly, no masses. EXTREMITIES: warm, well-perfused, no edema. NEUROLOGICAL: Normal mentation and speech PSYCH: Normal mood, normal affect. SKIN: Warm, dry, no rashes noted. LABS HOSPITAL COURSE: Date of Admission:07/16/17 Date of Discharge: 07/18/17 Ms. Merritt is a 26yo at 19weeks gestation, history of mild to moderate asthma who presented with 3 days of shortness of breath and increased wheezing and use of at home inhalers in setting of URI symptoms including sinus congestion. She had no signs of systemic infection, was afebrile throughout stay without signs of PNA on CXR. Pulmonary service consulted and recommended initiation of IV steroids, inhaled brochodilators and supplemental oxygen. She improved with these measures and was transitioned to po prednisone 40mg on HD# 2. She was monitored on oral steroids prior to discharge and on day of discharge was breathing well with normal O2 sats on room air. She was discharged on HD#3 with pulmonary and OB follow up, plan for outpt PFTs, and discharge medications included prednisone 40mg po daily to complete 7day course , zyrtec and inhaled budesonide. Minutes to complete discharge: 30 Discharge Summary Reason For Visit: EXACERBATION OF ASTHMA Current Active Problems Asthma exacerbation (Acute) Environmental allergies (Acute) Intrauterine (Acute) Condition: Stable - Instructions Diet, Activity, Other Instructions: You have been treated for asthma exacerbation. You will be prescribed a medication named Prednisone that take for the next 6 days in decreasing doses. Please complete the entire 6 day course as directed. Take Claritin daily for your allergies. Please follow up with you OB for care. Follow up with (pig sticker-lung doctor) in one week You can resume a regular diet. Increase your activity as tolerated. Avoid any triggers of your allergies, eg. smoke, pets. If breathing worsens or you develop fever/chills please return to ER immediately. Referrals: Carl Alvarez MD [Staff Physician] - 1 Week Marin Hayward [Primary Care Provider] - 1 Week Disposition: HOME - Home Medications Comprehensive Discharge Medication List: Ambulatory Orders Cetirizine HCl [Zyrtec -] 20 mg PO DAILY 02/19/17 Budesonide [Pulmicort Flexhaler] 90 mcg IH BID #1 [email or web address] 07/17/17 Prednisone [Deltasone -] 40 mg PO DAILY #8 tablet 07/17/17 This patient is new to me today: No Emergency Visit: Yes ED Registration Date: 07/16/17 Care time: The patient presented to the Emergency Department on the above date and was hospitalized for further evaluation of their emergent condition. Critical Care patient: No - Discharge Referral Referred to [facility] No
[2017-07-18] MEDS ORDERED: predniSONE 20 MG TABLET (UD) PO SCH (15:00)
--- NOTE | 2017-07-19 16:43 | EKG ---
Test Reason : Blood Pressure : / mmHG Vent. Rate : 097 BPM Atrial Rate : 097 BPM P-R Int : 128 ms QRS Dur : 068 ms QT Int : 346 ms P-R-T Axes : 068 051 048 degrees QTc Int : 439 ms NORMAL SINUS RHYTHM NORMAL ECG WHEN COMPARED WITH ECG OF 16-JUL-2017 22:02, NO SIGNIFICANT CHANGE WAS FOUND Confirmed by JEROME WHEAT MD ([id number]) on 07/19/2017 4:43:00 PM Referred By: LOKI YOU Confirmed By:JEROME WHEAT MD
--- NOTE | 2017-07-20 21:47 | EKG ---
Test Reason : Blood Pressure : / mmHG Vent. Rate : 112 BPM Atrial Rate : 112 BPM P-R Int : 124 ms QRS Dur : 070 ms QT Int : 324 ms P-R-T Axes : 055 020 020 degrees QTc Int : 442 ms SINUS TACHYCARDIA OTHERWISE NORMAL ECG WHEN COMPARED WITH ECG OF 16-JUL-2017 00:13, PREMATURE VENTRICULAR COMPLEXES ARE NO LONGER PRESENT REPEAT EKG IF CLINICALLY INDICATED Confirmed by MIRELA MONAE MD ([id number]) on 07/20/2017 9:47:06 PM Referred By: Confirmed By:MIRELA MONAE MD
== END 2017-07-17 18:29 | disposition home or self-care (01) | DRG 566 ==
LOC: JER 19:39 → SUPCPDRO 19:39 → JERBED 23:10 → J4W 07-16 00:46 → OBSVTOIN 07-16 07:38
PROVIDERS: ADMIT Internal Medicine; ATTEND Internal Medicine
DX: O26.892 Other specified pregnancy related conditions, second trimester (principal); Z3A.19 19 weeks gestation of pregnancy; Z91.09 Other allergy status, other than to drugs and biological substances; J45.41 Moderate persistent asthma with (acute) exacerbation
CPT/HCPCS: 36415; 71010-TC; 80048; 80053; 84484; 85025; 85027; 87804; 93005; 93010; 94150; 94640; 99285-25; G0378

== ENCOUNTER 2021-10-23 17:25 | Emergency (ER) | payer OTHER ==
[2021-10-23 17:34] VITALS: BMI 33.3
[2021-10-24 04:10] VITALS: BP 98/61; TEMP 98.9
[2021-10-25 04:52] VITALS: PULSE 68
== END 2021-10-23 21:07 | disposition home or self-care (01) ==
LOC: JER 17:25
DX: K62.89 Other specified diseases of anus and rectum (principal)
CPT/HCPCS: 99283-25